=== PATIENT | female | born 1950 | race Caucasian/White ===

== ENCOUNTER 2020-03-16 01:59 | Emergency (ER) | payer MEDICARE, OTHER ==
[2020-03-16 02:12] VITALS: PULSE 80
--- NOTE | 2020-03-16 02:26 | EDM.PDOC ---
ED HPI GENERAL MEDICAL PROBLEM - General Chief Complaint: Chest Pain Stated Complaint: [facility] Time Seen by Provider: 03/16/20 02:09 Source of Information: Reports: Patient History Limitations: Reports: No Limitations - History of Present Illness INITIAL COMMENTS - FREE TEXT/NARRATIVE: Ms. Arauz is a very pleasant 69-year-old woman who now presents to the ED by EMS with a complaint of dyspnea and chest pain. She states that she developed dyspnea around 14:00 yesterday, 03/15/2020. It is worse with exertion. She then developed a squeezing retrosternal chest pain around 16:00 yesterday. She also reports having the same pain felt to the far right of her chest. The chest pain has been coming and going, typically lasting for about a few hours. She was unable to sleep with it tonight, which is why she called EMS. No associated nausea or diaphoresis. No prior similar symptoms. The patient did not take any [id number] or home remedies prior to calling EMS. Here in the ED, the patient's initial BP is found to be elevated at 153/86, otherwise, she is hemodynamically stable, afebrile, saturating 97% on room air. The patient states that she had some watery diarrhea about 2 weeks ago, otherwise, prior to yesterday, the patient denies having a recent fever, chills, sore throat, ear pain, nasal or sinus congestion, cough, dyspnea, chest pain, pa lpitations, nausea, vomiting, constipation, abdominal pain, urinary symptoms, recent weight gain or weight loss, recent bloody bowel movements or black bowel movements, recent joint aches, headaches, or rashes. The patient's PCP is Audra Hua NP. She has not received an influenza vaccine this season, and declined an offer to receive one here today. Mid-Sternal Chest Pain Score (Numeric/FACES): 6 - Related Data Allergies Allergy/AdvReac Type Severity Reaction Status Date / Time codeine Allergy Nausea Verified 03/16/20 02:03 penicillin Allergy Swelling Verified 03/16/20 02:03 Home Meds: Home Meds Lisinopril/Hydrochlorothiazide [Lisinopril-Hctz 20-12.5 mg Tab] 1 each PO DAILY #14 tablet 03/26/16 [Rx] Past Medical History HEENT History: Reports: Hard of Hearing (profound - wears hearing aids), Impaired Vision (wears glasses) Cardiovascular History: Reports: Hypertension Endocrine/Metabolic History: Reports: Diabetes, Type II - Past Surgical History HEENT Surgical History: Reports: Adenoidectomy, Cataract Surgery (bilateral), Tonsillectomy Female Surgical History: Reports: Hysterectomy (partial), Other (See Below) (Bladder suspension) Social & Family History - Tobacco Use Tobacco Use Status *Q: Current Every Day Tobacco User Years of Tobacco use: 57 Packs/Tins Daily: 0.2 Packs/Tins Daily Comment: Down from 1 ppd - Alcohol Use Alcohol Use History: No - Recreational Drug Use Recreational Drug Use: No - Living Situation & Occupation Living situation: Reports: , Alone Occupation: Retired ED ROS GENERAL - Review of Systems Review Of Systems: Comprehensive ROS is negative, except as noted in HPI. ED EXAM, GENERAL - Physical Exam Exam: See Below Exam Limited By: No Limitations General Appearance: Alert, WD/WN, No Apparent Distress Eye Exam: Bilateral Eye: EOMI, Normal Inspection (s/p cataract surgery) Ears: Normal External Exam, Hearing Loss Nose: Normal Inspection Throat/Mouth: Normal Inspection, Normal Lips, Normal Voice, No Airway Compromise Head: Atraumatic, Normocephalic Neck: Normal Inspection, Full Range of Motion Respiratory/Chest: No Respiratory Distress, Lungs Clear, Normal Breath Sounds, No Accessory Muscle Use, Chest Non-Tender Cardiovascular: Normal Peripheral Pulses, Regular Rate, Rhythm, No Edema, No Gallop, No JVD, No Murmur, No Rub Peripheral Pulses: 3+: Radial (L), Radial (R) GI/Abdominal: Normal Bowel Sounds, Soft, Non-Tender, No Organomegaly, No Diste ntion, No Abnormal Bruit, No Mass Back Exam: Normal Inspection, Full Range of Motion, NT Extremities: Normal Inspection, Normal Range of Motion, No Pedal Edema, Normal Capillary Refill Neurological: Alert, Oriented, Normal Cognition, No Motor/Sensory Deficits Psychiatric: Normal Affect Skin Exam: Warm, Dry, Intact, Normal Color, No Rash #1 Interpretation EKG Date: 03/16/20 Time: 02:09 Rhythm: NSR Rate (Beats/Min): 78 [place]: Normal P-Wave: Enlarged (LAE. Borderline 1st degree AVB.) QRS: Other (Early transition) ST-T: Normal QT: Prolonged (QTc 490 ms) Comparison: NA - No Prior EKG #2 Interpretation EKG Date: 03/16/20 Time: 06:11 Rhythm: Other (Sinus bradycardia) Rate (Beats/Min): 55 [place]: Normal P-Wave: Enlarged (LAE. Borderline 1st degree AVB) QRS: Other (Early transition) ST-T: Normal QT: Normal Comparison: No Change Course - Vital Signs Last Recorded V/S: Last Vital Signs Temp 37.1 C 03/16/20 02:07 Pulse 80 03/16/20 02:07 Resp 17 03/16/20 02:07 BP 170/98 H 03/16/20 04:08 Pulse Ox 97 03/16/20 02:07 - Orders/Labs/Meds Orders: Active Orders 24 hr Category Date Time Status EKG Documentation Completion [RC] STAT Care 03/16/20 02:17 Active EKG Documentation Completion [RC] STAT Care 03/16/20 06:04 Active Chest 1V Frontal [CR] Stat Exams 03/16/20 02:17 Taken Heparin Sodium/D5W [Heparin 25,000 Units in D5W 500 ML] Med 03/16/20 04:30 Active 25,000 units in 500 ml IV TITRATE Magnesium Sulfate/Water [Magnesium Sulfate in Water Med 03/16/20 02:51 Active Premix] 4 gm Premix Bag 1 bag IV ONETIME Medication Orders Magnesium Sulfate 4 gm/ Premix 50 mls @ 12.5 mls/hr IV ONETIME ONE Stop: 03/16/20 06:50 Last Admin: 03/16/20 03:00 Dose: 12.5 mls/hr Documented by: SUSHILA Heparin Sodium/Dextrose (Heparin 25,000 Units In D5w 500 Ml) 25,000 units in 500 mls @ 17.8 mls/hr IV TITRATE JADYN; Protocol Last Admin: 03/16/20 04:44 Dose: 890 units/hr, 17.8 mls/hr Documented by: JATIN Cosigned by: SUSHILA Labs: Laboratory Tests 03/16/20 03/16/20 03/16/20 Range/Units 02:14 02:14 02:14 WBC 7.93 (3.98-10.04) K/mm3 RBC 5.29 H (3.98-5.22) M/mm3 Hgb 13.5 (11.2-15.7) gm/dl Hct 40.7 (34.1-44.9) % MCV 76.9 L (79.4-94.8) fl MCH 25.5 L (25.6-32.2) pg MCHC 33.2 (32.2-35.5) g/dl RDW Std Deviation 37.1 (36.4-46.3) fL Plt Count 357 (182-369) K/mm3 MPV 9.8 (9.4-12.3) fl Neutrophils % (Manual) 67 H (40-60) % Band Neutrophils % 0 (0-10) % Lymphocytes % (Manual) 30 (20-40) % Atypical Lymphs % 0 % Monocytes % (Manual) 2 (2-10) % Eosinophils % (Manual) 1 (0.7-5.8) % Basophils % (Manual) 0 L (0.1-1.2) Platelet Estimate Adequate RBC Morph Comment Normal APTT (21.7-31.4) SECONDS D-Dimer, Quantitative 0.56 H (0.19-0.50) mg/L Sodium 136 (136-145) mEq/L Potassium 3.4 L (3.5-5.1) mEq/L Chloride 98 (98-107) mEq/L Carbon Dioxide 28 (21-32) mEq/L Anion Gap 13.4 (5-15) BUN 24 H (7-18) mg/dL Creatinine 1.3 H (0.55-1.02) mg/dL Est Cr Clr Drug Dosing 38.98 mL/min Estimated GFR (MDRD) 41 (>60) mL/min BUN/Creatinine Ratio 18.5 H (14-18) Glucose 325 H (80-115) mg/dL Calcium 9.1 (8.5-10.1) mg/dL Magnesium 1.5 L (1.8-2.4) mg/dl Total Bilirubin 0.4 (0.2-1.0) mg/dL AST 9 L (15-37) U/L ALT 16 (14-59) U/L Alkaline Phosphatase 81 (46-116) U/L Troponin I 0.053 (0.00-0.056) ng/mL NT-Pro-B Natriuret Pep (0-125) pg/mL Total Protein 6.9 (6.4-8.2) g/dl Albumin 3.5 (3.4-5.0) g/dl Globulin 3.4 gm/dL Albumin/Globulin Ratio 1.0 (1-2) SARS-CoV-2 RNA (ABHIJEET) (NEGATIVE) 03/16/20 03/16/20 03/16/20 Range/Units 02:14 02:14 03:02 WBC (3.98-10.04) K/mm3 RBC (3.98-5.22) M/mm3 Hgb (11.2-15.7) gm/dl Hct (34.1-44.9) % MCV (79.4-94.8) fl MCH (25.6-32.2) pg MCHC (32.2-35.5) g/dl RDW Std Deviation (36.4-46.3) fL Plt Count (182-369) K/mm3 MPV (9.4-12.3) fl Neutrophils % (Manual) (40-60) % Band Neutrophils % (0-10) % Lymphocytes % (Manual) (20-40) % Atypical Lymphs % % Monocytes % (Manual) (2-10) % Eosinophils % (Manual) (0.7-5.8) % Basophils % (Manual) (0.1-1.2) Platelet Estimate RBC Morph Comment APTT 27.2 (21.7-31.4) SECONDS D-Dimer, Quantitative (0.19-0.50) mg/L Sodium (136-145) mEq/L Potassium (3.5-5.1) mEq/L Chloride (98-107) mEq/L Carbon Dioxide (21-32) mEq/L Anion Gap (5-15) BUN (7-18) mg/dL Creatinine (0.55-1.02) mg/dL Est Cr Clr Drug Dosing mL/min Estimated GFR (MDRD) (>60) mL/min BUN/Creatinine Ratio (14-18) Glucose (80-115) mg/dL Calcium (8.5-10.1) mg/dL Magnesium (1.8-2.4) mg/dl Total Bilirubin (0.2-1.0) mg/dL AST (15-37) U/L ALT (14-59) U/L Alkaline Phosphatase (46-116) U/L Troponin I (0.00-0.056) ng/mL NT-Pro-B Natriuret Pep 771 H (0-125) pg/mL Total Protein (6.4-8.2) g/dl Albumin (3.4-5.0) g/dl Globulin gm/dL Albumin/Globulin Ratio (1-2) SARS-CoV-2 RNA (ABHIJEET) Negative (NEGATIVE) 03/16/20 Range/Units 04:45 WBC (3.98-10.04) K/mm3 RBC (3.98-5.22) M/mm3 Hgb (11.2-15.7) gm/dl Hct (34.1-44.9) % MCV (79.4-94.8) fl MCH (25.6-32.2) pg MCHC (32.2-35.5) g/dl RDW Std Deviation (36.4-46.3) fL Plt Count (182-369) K/mm3 MPV (9.4-12.3) fl Neutrophils % (Manual) (40-60) % Band Neutrophils % (0-10) % Lymphocytes % (Manual) (20-40) % Atypical Lymphs % % Monocytes % (Manual) (2-10) % Eosinophils % (Manual) (0.7-5.8) % Basophils % (Manual) (0.1-1.2) Platelet Estimate RBC Morph Comment APTT (21.7-31.4) SECONDS D-Dimer, Quantitative (0.19-0.50) mg/L Sodium (136-145) mEq/L Potassium (3.5-5.1) mEq/L Chloride (98-107) mEq/L Carbon Dioxide (21-32) mEq/L Anion Gap (5-15) BUN (7-18) mg/dL Creatinine (0.55-1.02) mg/dL Est Cr Clr Drug Dosing mL/min Estimated GFR (MDRD) (>60) mL/min BUN/Creatinine Ratio (14-18) Glucose (80-115) mg/dL Calcium (8.5-10.1) mg/dL Magnesium (1.8-2.4) mg/dl Total Bilirubin (0.2-1.0) mg/dL AST (15-37) U/L ALT (14-59) U/L Alkaline Phosphatase (46-116) U/L Troponin I 0.155 H* (0.00-0.056) ng/mL NT-Pro-B Natriuret Pep (0-125) pg/mL Total Protein (6.4-8.2) g/dl Albumin (3.4-5.0) g/dl Globulin gm/dL Albumin/Globulin Ratio (1-2) SARS-CoV-2 RNA (ABHIJEET) (NEGATIVE) Meds: Medications Generic Name Dose Route Start Last Admin Trade Name Freq PRN Reason Stop Dose Admin Magnesium Sulfate 4 gm/ Premix 50 mls @ 12.5 mls/hr 03/16/20 02:51 03/16/20 03:00 IV 03/16/20 06:50 12.5 mls/hr ONETIME ONE Administration Heparin Sodium/Dextrose 25,000 units in 500 mls @ 17.8 mls/hr 03/16/20 04:30 03/16/20 04:44 Heparin 25,000 Units In D5w 500 Ml IV 890 units/hr TITRATE JADYN 17.8 mls/hr Administration Protocol 890 UNITS/HR Discontinued Medications Generic Name Dose Route Start Last Admin Trade Name Freq PRN Reason Stop Dose Admin Aspirin 324 mg 03/16/20 06:03 03/16/20 06:15 Aspirin PO 03/16/20 06:04 324 mg ONETIME STA Administration Heparin Sodium (Porcine) 4,000 units 03/16/20 04:27 03/16/20 04:44 Heparin Sodium IVPUSH 03/16/20 04:28 4,000 units .BOLUS ONE Administration Nitroglycerin 0.4 mg 03/16/20 04:01 03/16/20 04:08 Nitrostat SL 03/16/20 04:02 0.4 mg ONETIME ONE Administration - Re-Assessments/Exams Free Text/Narrative Re-Assessment/Exam: 03/16/20 02:24 As above, the patient developed dyspnea, worse with exertion, around 14:00 yesterday, then squeezing retrosternal chest pain on and off since 16:00. She also reports the same sensation to her far right chest. She has not identified any modifiers. The pain prevents her from sleeping. No nausea, diaphoresis, or sense of impending doom. Her blood pressure here in the ED is elevated, although her ECG obtained at triage does not show any ischemic changes. Her physical exam is grossly unremarkable. I have ordered a work-up that includes several blood tests and a portable chest x-ray. 03/16/20 02:49 Portable chest radiograph is read by [facility] as "No acute findings are evident" The patient's CBC is unremarkable. Her CMP is remarkable for slight hypokalemia of 3.4, renal insufficiency with a BUN/Cr elevated at 24/1.3, and hyperglycemia of 325, with the remainder of her CMP being unremarkable. She has hypomagnesemia of 1.5. Her troponin is within normal limits at 0.053. Her D-dimer is elevated at 0.56. Her BNP is mildly elevated at 731. The patient's elevated D-dimer is consistent with her renal insufficiency, and not consistent with a pulmonary embolus, therefore I am not recommending a CT angiogram of the chest. Based on the above, I have ordered a 4 g Mg-rider and a swab for the SARS-CoV-2 virus, since I will be recommending admission. 03/16/20 03:56 The patient's swab for the SARS-CoV-2 virus has returned negative. 03/16/20 03:58 Test results discussed with the patient. As above, today's work-up is remarkable for hyperglycemia and mild renal insufficiency, likely as a result of her diabetes, however, her cardiac work-up is negative. I explained that she has not suffered an TN, however, that does not mean that her pain is not cardiac in etiology. I therefore recommended placement into observation for further work-up, such as a cardiac stress test. The patient agreed. 03/16/20 04:[address] Dasilva at 03:59. He suggested that we give the patient sublingual nitroglycerin. If her chest pain does not improve, then he agreed to accept her for placement into observation, however, if her chest pain does improve, then that would be indicative of unstable angina, in which case we should transfer her. 03/16/20 04:[address] Dasilva. He would like me to run the case by Cardiology. 03/16/20 04:25 The patient states that her chest pain comes and goes, and therefore it is difficult to say whether or not the nitroglycerin did anything. I reminded her that she had told me that the chest pain typically last for 3 or 4 hours, and she replied that sometimes it does, but sometimes it does not. It does not sound like the nitroglycerin had much effect. Case discussed with Samina at [facility] at 04:04. Case then discussed with Dr. Watt, Industrial Hygienist on-call at [facility], at 04:10. He acknowledged that the initial troponin was obtained well after 4 hours after the onset of her symptoms, but recommended that we repeat her troponin anyway. He also recommended that we start the patient on a heparin drip, and transfer the patient. Samina informed us that they do not currently have any beds available, however, they may have some beds later on today. Dr. Watt recommended that we not perform a cardiac stress test. I will contact [facility] to see if they have any beds available. 03/16/20 04:30 Case discussed with Erika at [facility] at 04:27. Unfortunately, they do not have any non-COVID cardiac beds available at this time, however, they too may have some later today. I have ordered a second troponin and PTT, along with a heparin bolus and drip. The plan will be to keep the patient here in the ED until a bed in [place] becomes available. 03/16/20 05:22 The patient's repeat troponin has increased to 0.155. 03/16/20 06:06 Case discussed with Lew at [facility] at 05:50. The portable chest x-ray image was pushed to [facility] at 05:54. This then discussed with Dr. Turk, Hospitalist at [facility], at 06:00. Due to the patient's current bradycardia of 47 bpm, he requested that we repeat an ECG, and call them if there are any new changes. He accepted the patient for transfer to their facility. She will need to go by air. 03/16/20 06:24 The above plan was discussed with the patient, who is agreeable. Notified by Susy MEJIA that the patient will be going by fixed wing, but that the plane has to come from [place], and that they will not be here until around 08:00. Departure - Departure Time of Disposition: 06:08 Disposition: DC/Tfer to Acute Hospital 02 Condition: Fair Clinical Impression: Non-ST elevated myocardial infarction (non-STEMI), Hypomagnesemia, Hyperglycemia due to type 2 diabetes mellitus - Discharge Information *PRESCRIPTION DRUG MONITORING PROGRAM REVIEWED*: Not Applicable *COPY OF PRESCRIPTION DRUG MONITORING REPORT IN PATIENT JESSIE: Not Applicable Referrals: Audra Hua NP [Primary Care Provider] - Forms: ED Department Discharge Sepsis Event Note (ED) - Evaluation Sepsis Screening Result: No Definite Risk - Focused Exam Vital Signs: Vital Signs Temp Pulse Resp BP BP Pulse Ox 03/16/20 04:08 170/98 H 03/16/20 02:07 37.1 C 80 17 153/86 H 97 - My Orders Last 24 Hours: My Active Orders 03/16/20 02:17 EKG Documentation Completion [RC] STAT Chest 1V Frontal [CR] Stat 03/16/20 02:51 Magnesium Sulfate/Water [Magnesium Sulfate in Water Premix] 4 gm Premix Bag 1 bag IV ONETIME 03/16/20 04:30 Heparin Sodium/D5W [Heparin 25,000 Units in D5W 500 ML] 25,000 units in 500 ml IV TITRATE 03/16/20 06:04 EKG Documentation Completion [RC] STAT - Assessment/Plan Last 24 Hours: My Active Orders 03/16/20 02:17 EKG Documentation Completion [RC] STAT Chest 1V Frontal [CR] Stat 03/16/20 02:51 Magnesium Sulfate/Water [Magnesium Sulfate in Water Premix] 4 gm Premix Bag 1 bag IV ONETIME 03/16/20 04:30 Heparin Sodium/D5W [Heparin 25,000 Units in D5W 500 ML] 25,000 units in 500 ml IV TITRATE 03/16/20 06:04 EKG Documentation Completion [RC] STAT
[2020-03-16] MEDS ORDERED: Magnesium Sulfate/Water 4 GM in Premix Bag 1 BAG IV ONE (02:51)
[2020-03-16] MEDS ORDERED: Nitroglycerin 0.4 MG Tab.SL SL ONE (04:01)
[2020-03-16 04:09] VITALS: BP 170/98
[2020-03-16] MEDS ORDERED: Heparin Sodium 5,000 Units/ML Vial IVPUSH ONE (04:27)
[2020-03-16] MEDS ORDERED: Heparin Sodium/D5W 25,000 UNITS/500 ML BAG IV SCH (04:30)
[2020-03-16] MEDS ORDERED: Aspirin 81 MG Tab.Chew PO STA (06:03)
--- NOTE | 2020-03-16 08:10 | CR ---
Chest: Portable view of the chest was obtained. Comparison: No previous chest x-rays available. Findings: Lungs: Slight atelectasis is seen within the left mid to lower lung. Lungs otherwise are clear. Heart and mediastinum: Heart size and mediastinum are within normal limits. Osseous: Bony structures showed nothing acute. Impression: 1. Slight atelectasis with left mid lower lung. 2. Nothing acute is otherwise seen. Diagnostic code #2 I agree with preliminary report from [facility], finalized on 03/15/20, 9:34 PM SECURITY CLERK
== END 2020-03-16 08:35 ==
LOC: JD.ED 01:59
DX: I21.4 Non-ST elevation (NSTEMI) myocardial infarction (principal); E11.65 Type 2 diabetes mellitus with hyperglycemia; E83.42 Hypomagnesemia; I10 Essential (primary) hypertension; F17.210 Nicotine dependence, cigarettes, uncomplicated; Z20.828 Contact with and (suspected) exposure to other viral communicable diseases; Z88.5 Allergy status to narcotic agent; Z88.0 Allergy status to penicillin; Z90.710 Acquired absence of both cervix and uterus; Z90.49 Acquired absence of other specified parts of digestive tract; Z79.899 Other long term (current) drug therapy
CPT/HCPCS: 36415; 71045; 71045-26; 80053; 83735; 83880; 84484; 85007; 85027; 85379; 85730; 93005; 93010; 96365; 96366; 96368; 99285; 99285-25; A9270-GY; J1644; J3475; U0002